=== PATIENT | male | born 1995 | race Caucasian/White ===

== ENCOUNTER 2017-05-20 04:18 | Emergency (ER) | payer OTHER ==
[~2017-05-20] VITALS: Ht 167.6 cm; Wt 73.9 kg
[~2017-05-20 04:18] MED LIST: ALBU-136 IH; BECL0.089 INH; PRED20TA5 PO
[2017-05-20 04:25] VITALS: BP 110/61
--- NOTE | 2017-05-20 04:40 | NUR ---
PATIENT AMBULATED TO ER BED 3.
--- NOTE | 2017-05-20 04:55 | NUR ---
Patient discharged with v/s stable. Written and verbal after care instructions given and explained. Patient alert, oriented and verbalized understanding of instructions. Ambulatory with steady gait. All questions addressed prior to discharge. ID band removed. Patient advised to follow up with PMD. Rx of Alegra and Phenergan DM given. Patient educated on indication of medication including possible reaction and side effects. Opportunity to ask questions provided and answered.
== END 2017-05-20 04:55 | disposition home or self-care (01) ==
LOC: MED 04:18
DX: J30.2 Other seasonal allergic rhinitis (principal); J06.9 Acute upper respiratory infection, unspecified; J45.909 Unspecified asthma, uncomplicated; Z79.899 Other long term (current) drug therapy
CPT/HCPCS: 99283

== ENCOUNTER 2018-10-01 11:12 | Emergency (ER) | payer OTHER ==
[~2018-10-01] VITALS: Ht 165.1 cm; Wt 76.4 kg
[2018-10-01 11:21] VITALS: BP 115/72
[2018-10-01] MEDS ORDERED: OLAN7.5T1 PO (11:24)
--- NOTE | 2018-10-01 11:27 | NUR ---
Patient ambulated to bed 9. RN evaluating patient at bedside.
--- NOTE | 2018-10-01 11:40 | NUR ---
PT PRESENTS TO ED FOR EVALUATION OF ABDOMINAL PAIN. PT STATED PAIN STARTED TODAY, BURNING LIKE PAIN. DENIES N/V/D. AAO X4, GCS 15, ABLE TO SPEAK WITH FULL COMPLETE SENTENCES. RESPIATIONS EVEN AND UNALBORED, BL LUNG CLEAR. SKIN WARM/PINK/DRY, +PMSC. ABDOMEN SOFT, NON DISTENDED, ACTIVE BOWEL SOUND X 4. VSS, STATED PAIN 5/10. AWARE OF PT STATUS. WILL CONTINUE TO MONITOR
--- NOTE | 2018-10-01 12:05 | NUR ---
Dr. Epps evaluating patient at bedside.
[2018-10-01] MEDS ORDERED: FAMOTIDINE 20 MG TAB PO ONE (12:20)
[2018-10-01] MEDS ORDERED: DICYCLOMINE HCL LIQUID 10 MG/5 ML UDC PO ONE (12:20)
[2018-10-01] MEDS ORDERED: METOCLOPRAMIDE 10 MG TAB PO ONE (12:20)
[2018-10-01] MEDS ORDERED: LACTULOSE 20 GM/30 ML UDC PO ONE (12:20)
--- NOTE | 2018-10-01 12:48 | NUR ---
William returned from XRAY. RN re-evaluating patient at bedside.
--- NOTE | 2018-10-01 13:53 | NUR ---
Patient appears to be resting in bed. Vital Signs within normal limits. Respirations even and unlabored.
[2018-10-01 14:16] VITALS: BP 114/68
--- NOTE | 2018-10-01 14:16 | NUR ---
Patient discharged with v/s stable. Written and verbal after care instructions given and explained. Patient alert, oriented and verbalized understanding of instructions. Ambulatory with steady gait. All questions addressed prior to discharge. ID band removed. Patient advised to follow up with PMD. Rx of BENTYL 20 MG, COLACE 100 MG given. Patient educated on indication of medication including possible reaction and side effects. Opportunity to ask questions provided and answered.
== END 2018-10-01 14:16 | disposition home or self-care (01) ==
LOC: MED 11:12
DX: K59.00 Constipation, unspecified (principal); F20.9 Schizophrenia, unspecified; J45.909 Unspecified asthma, uncomplicated; Z79.899 Other long term (current) drug therapy
CPT/HCPCS: 74021; 81002; 99284; J8597

== ENCOUNTER 2019-04-25 12:24 | Emergency (ER) | payer OTHER ==
[~2019-04-25] VITALS: Ht 162.6 cm; Wt 77.1 kg
[~2019-04-25 12:24] MED LIST changes: -BECL0.089 INH; +OLAN7.5T1 PO; -PRED20TA5 PO
[2019-04-25 12:28] VITALS: BP 122/70
--- NOTE | 2019-04-25 12:31 | NUR ---
PT AMBULATED TO ER BED 06
[2019-04-25] MEDS ORDERED: ACETAMINOPHEN 325 MG TAB PO ONE (12:35)
--- NOTE | 2019-04-25 12:44 | NUR ---
PT BIB SELF TO THE ED WITH THE CHIEF C/O ABD PAIN, NAUSEA, DIARRHEA X 3 DAYS. DIARRHEA X4 TODAY. NO BLOOD IN DIARRHEA. ABDOMEN SOFT, ROUND AND NON-TENDER. BOWEL SOUND ABSENT AT THIS TIME. NON-RADIATING ABDOMINAL PAIN 4/10. DENIES BURNING OR FREQUENCY OF URINATION. DENIES OTHER PROBLEM AT THIS TIME.
--- NOTE | 2019-04-25 14:16 | NUR ---
Temperature taken was 101.3. Dr. Martinez made aware.
--- NOTE | 2019-04-25 14:32 | NUR ---
PT EVALUATED BY RENETTA WU.
[2019-04-25] MEDS ORDERED: ONDANSETRON 4 MG TAB PO ONE (14:35)
--- NOTE | 2019-04-25 14:46 | NUR ---
Patient discharged with v/s stable. Written and verbal after care instructions given and explained by ER MD. Patient alert, oriented and verbalized understanding of instructions. Ambulatory with steady gait. All questions addressed prior to discharge. ID band removed. Patient advised to follow up with PMD. Rx of ZOFRAN given. Patient educated on indication of medication including possible reaction and side effects. Opportunity to ask questions provided and answered. Patient discharged by Dr. Martinez.
[2019-04-25 14:47] VITALS: BP 122/70
== END 2019-04-25 14:46 | disposition home or self-care (01) ==
LOC: MED 12:24
DX: A08.4 Viral intestinal infection, unspecified (principal); J45.909 Unspecified asthma, uncomplicated; Z79.899 Other long term (current) drug therapy; Z79.51 Long term (current) use of inhaled steroids
CPT/HCPCS: 99283; Q0162